=== PATIENT | female | born 1995 | race African-American/Black ===

== ENCOUNTER 2017-06-12 21:40 | Emergency (ER) | payer MEDICAID ==
[~2017-06-12] VITALS: Ht 162.6 cm; Wt 68.6 kg
[2017-06-12 21:55] VITALS: TEMP 98.9
[2017-06-12] MEDS ORDERED: PURINETHOL 50MG50 MG PO (21:59)
[2017-06-12 23:15] LABS: PH 5 (5-8); SQUAMOUS EPITHELIAL 0-2 /hpf; URINE APPEARANCE Hazy; URINE BACTERIA None Seen /hpf; URINE BILIRUBIN Negative (NEGATIVE); URINE BLOOD 3+ (NEGATIVE); URINE COLOR Yellow; URINE GLUCOSE Negative (NEGATIVE); URINE KETONE Negative (NEGATIVE); URINE RBC >50 /hpf; URINE UROBILINOGEN Negative (NEGATIVE); URINE WBC >50 /hpf
[2017-06-12] MEDS ORDERED: CIPRO 500MG TA500 MG PO (23:35)
[2017-06-12] MEDS ORDERED: PYRIDIUM 100MG100 MG PO (23:35)
[2017-06-12 23:46] VITALS: BP 120/64; PULSE 98
== END 2017-06-12 23:47 | disposition home or self-care (01) ==
LOC: COL.ER 21:40
PROVIDERS: Emergency Medicine
DX: N93.8 Other specified abnormal uterine and vaginal bleeding (principal); N39.0 Urinary tract infection, site not specified